=== PATIENT | male | born 1985 | race Caucasian/White ===

== ENCOUNTER 2018-12-18 19:41 | Emergency (ER) | payer SELFPAY ==
[~2018-12-18] VITALS: Ht 182.9 cm; Wt 84.0 kg
[2018-12-18] MEDS ORDERED: LIDOCAINE HCL/PF 1% 10 MG/ML 5ML VIAL IJ ONE (20:45)
[2018-12-18] MEDS ORDERED: BACITRACIN ZINC OINT UDPKT TOP ONE (20:45)
[2018-12-18] MEDS ORDERED: ACETAMINOPHEN 500MG TABLET PO ONE (20:45)
[2018-12-18] MEDS ORDERED: BACITRACIN 15GM TUBE TOP NR (21:30)
[2018-12-18 22:01] VITALS: BP 96/54
== END 2018-12-18 22:03 | disposition home or self-care (01) ==
LOC: ER 19:41
DX: S91.011A Laceration without foreign body, right ankle, initial encounter (principal); S60.011A Contusion of right thumb without damage to nail, initial encounter; F12.10 Cannabis abuse, uncomplicated; F14.10 Cocaine abuse, uncomplicated; F17.200 Nicotine dependence, unspecified, uncomplicated; X50.9XXA Other and unspecified overexertion or strenuous movements or postures, initial encounter; Y93.51 Activity, roller skating (inline) and skateboarding; Y92.89 Other specified places as the place of occurrence of the external cause; Y99.8 Other external cause status
CPT/HCPCS: 12001; 73130; 73610; 99283; J3490; Z7610

== ENCOUNTER 2018-12-30 06:54 | Emergency (ER) | payer MEDICAID, SELFPAY ==
[~2018-12-30] VITALS: Ht 182.9 cm; Wt 87.0 kg
[2018-12-30 07:32] VITALS: BP 110/70
== END 2018-12-30 07:57 | disposition home or self-care (01) ==
LOC: ER 06:54
DX: S91.011D Laceration without foreign body, right ankle, subsequent encounter (principal); F12.10 Cannabis abuse, uncomplicated; X58.XXXD Exposure to other specified factors, subsequent encounter
CPT/HCPCS: 99282